=== PATIENT | male | born 1995 | race Caucasian/White ===

== ENCOUNTER 2025-09-15 09:54 | Emergency (ER) | payer OTHER ==
[~2025-09-15] VITALS: Ht 172.7 cm; Wt 72.6 kg
[2025-09-15 09:57] VITALS: BP 130/77
[2025-09-15] MEDS ORDERED: TDAP DIPH,PERTUSS,TET VAC/PF 0.5 ML DISP.SYRIN IM ONE (10:15)
[2025-09-15] MEDS: TDAP DIPH,PERTUSS,TET VAC/PF 0.5 ML DISP.SYRIN IM ONE (10:20)
[2025-09-15 10:48] VITALS: BP 130/77; TEMP 98.5; O2SAT 97
== END 2025-09-15 10:48 | disposition home or self-care (01) ==
LOC: ER 09:54
DX: S61.012A Laceration without foreign body of left thumb without damage to nail, initial encounter (principal); X58.XXXA Exposure to other specified factors, initial encounter; Y93.89 Activity, other specified; Y92.89 Other specified places as the place of occurrence of the external cause; Y99.9 Unspecified external cause status
CPT/HCPCS: 90715; A4606; A4663